=== PATIENT | female | born 1990 | race African-American/Black ===

== ENCOUNTER 2019-10-18 06:47 | Inpatient (IN) | payer OTHER ==
[2019-10-18] MEDS ORDERED: Ondansetron PF 4 MG/2 ML Vial IVP PRN ×2 (07:35→16:12)
[2019-10-18] MEDS ORDERED: hydrALAZINE 20 MG/ML VIAL SLOW IVP PRN (07:35)
[2019-10-18] MEDS ORDERED: Promethazine HCl 25 MG/ML VIAL IM PRN ×2 (07:35→16:12)
[2019-10-18 07:42] VITALS: BMI 34.2
[2019-10-18] MEDS ORDERED: Bicitra 30 ML UDCUP PO SCH (07:45)
[2019-10-18] MEDS ORDERED: Clindamycin/D5W 900 MG in Premix Bag 1 BAG IVPB SCH (07:45)
[2019-10-18] MEDS ORDERED: Zidovudine 200 MG/20 ML VIAL IVPB SCH (07:45)
[2019-10-18] MEDS: Lactated Ringer's 1,000 ML IV SCH ×4 (08:00→18:15)
[2019-10-18] MEDS ORDERED: SODIUM CHLORIDE 0.9% IVPB SCH (08:15)
[2019-10-18] MEDS ORDERED: ZIDOVUDINE IVPB SCH (08:15)
[2019-10-18 08:20] LABS: Hemoglobin 10.4 g/dL (12.0-16.0); Mean Corpuscular HGB CONC 32.2 g/dL (32.0-36.0); Mean Corpuscular Hemoglobin 28.1 pg (27.0-31.0); Mean Corpuscular Volume 87.5 fL (78.0-98.0); Mean Platelet Volume 8.2 fL (7.4-10.4); Platelet Count 331 thou/uL (130-400); RBC Distribution Width 13.6 % (11.5-14.5); Red Blood Cell (RBC) Count 3.71 mill/uL (4.20-5.40); White Blood Cell (WBC) Count 11.7 thou/uL (4.8-10.8)
[2019-10-18] MEDS ORDERED: Gentamicin Sulfate 380 MG in Sodium Chloride 0.9% 100 ML IVPB SCH (08:30)
--- NOTE | 2019-10-18 08:30 | PDOC.FPROB ---
FMR OB H&P: HPI - History of Present Illness Chief Complaint: medically indicated at 39 weeks History of Present Illness: 29 y/o , at 39.2 weeks, dated by 36.1 week sono, c/w unsure LMP. Here today for medically indicated from HIV + with viral copy 341, viral log 2.533, CD4 count 556, genotype unknown. Pt has not been on HAART therapy during this and was started In September By Dr. Powers. MFM recommended c -section due to late to HAART therapy and viral copy load. PT denies LOF, Vag bleeding, vag discharge, or feeling contractions. movements observed every 1-2 minutes. PT states she really wants to have a BTL, due to her HIV status and not wanting to have any more children. Primary Care Physician: ROBERTA Stearns FMR OB H&P: Current - Care : 6 Para: 4 Gestational age: 39.2 Due date: 10/23/19 Dating Criteria: 36.1 wk sono, c/w unsure LMP. Course/Complications: HIV, untreated through course until early September 2019. Late to care. - OB Labs Blood type: O RH: positive Antibody Screen: negative HIV: positive RPR: negative HepBsAg: negative Rubella: non-immune Quad screen: unknown Gonorrhea: positive (treated last week in [facility]) Chlamydia: negative Pap Smear: performed 10/17 1 hour gtt: late to care, not done. GBS: unknown H&H: 10.10/17.1 Additional labs: HIV viral copy 341 HIV viral log 2.533 CD4 % 27.5 CD4 count 556 HIV genotype unknown GC and Trich +, treated in [facility] last week. - Additional Ultrasound Additional: 36.1 week sono used for dating. c/w unsure LMP. Anatomy sonogram 10/03: anterior placenta, cephalic presentation, no anatomy abnormalities observed, though suboptimal sonogram. BPP 10/11: 8/8, NST reactive. NATACHA 8.6, FHT's 145. Anterior placenta. FMR OB H&P: History - Past Medical History PMH: HIV + since 2007 fractured L foot, needing repair after of this child - OB History OB History: , one previous elective . 's X4 - Surgical History Sx History: cholecystectomy R-femur sx ORIF after trauma - Social History Social History: Recently discharged from [facility]. Previous use of smoking meth. Quit smoking X1 month ago. Smoked 1/2-1 ppd since she was 15. Denies abuse at home. Feels safe at home. Lives with mother and children. States father of her first daughter cheated on her and that is how she contracted HIV in 2007. States none of other children HIV +. Father of current somewhat involved with pt. In/out of her life. Denies abuse in relationship. Previous CPS case from when she delivered in [facility] at [facility]. - Family History Family History: no known medical history per pt. FMR OB H&P: Medications - Current Home Medications: Medication Instructions Recorded Confirmed Type Elviteg/Cob/Emtri/Tenofo Disop 1 tab PO QAM-WM 05/14/16 10/18/19 History [Stribild] No.137/Iron/Folic Acd 1 tablet PO DAILY 05/14/16 10/18/19 History [ Vitamin Tablet] Emtricitabine/Tenofovir (Tdf) 1 tab PO BID 10/18/19 10/18/19 History [Truvada 200 mg-300 mg Tablet] Etravirine [Intelence] 200 mg PO BID-PC 10/18/19 10/18/19 History Famotidine [Pepcid] 1 tab PO 10/18/19 History Raltegravir Potassium [Isentress] 1 tab PO 10/18/19 History Allergies/Adverse Reactions: Allergies Allergy/AdvReac Type Severity Reaction Status Date / Time Penicillins Allergy Intermediate Hives Verified 10/18/19 11:13 FMR OB H&P: ROS - Review of Systems General: denies: fever/chills, weight/appetite/sleep changes Eyes: reports: scotomas (occassionally, but not present recently). denies: eye pain ENT: denies: nasal congestion, sinus pain/pressure Cardiovascular: reports: edema (LE X1 month ago, went away about 2 weeks ago). denies: chest pain, palpitation Respiratory: denies: cough, shortness of breath Gastrointestinal: denies: abdominal pain, nausea, vomiting, diarrhea, constipation Genitourinary (Female): denies: incontinence, dysuria, vaginal pain, vaginal bleeding, vaginal mass/sore, contractions, vaginal pressure Musculoskeletal: reports: swelling. denies: pain, tenderness Neurologic: denies: numbness, seizures Integumentary: denies: itching, rash Hematologic/Lymphatic: denies: prolonged or excessive bleeding, enlarged lymph nodes FMR OB H&P: Vital Signs - Maternal Vital signs: BP 123/77, O2 sat 100% on RA, 105 HR, 98.7 temp - Heart Tones Baseline: 150 Variability: moderate Acceleration: present Deceleration: absent Category: category 1 [place] contractions every: Q6-10 min FMR OB H&P: Physical Exam - Physical Exam General: NAD, awake, alert and oriented HEENT: normocephalic and atraumatic, PERRLA, EOMI, MMM, conjunctiva clear, no scleral icterus, grossly normal vision, grossly normal hearing, other (denture removalble implant on upper teeth.) Neck: supple, FROM, trachea midline, no LAD, no JVD Chest: non-tender to palpation, no lesions Breast: symmetric Heart: RRR, normal S1/S2, no murmurs/rubs/gallops, pulses present, no edema General: CTAB, no respiratory distress, good air movement, no rales/rhonchi, no wheezing, no retractions Abdomen: soft, gravid, non-tender, bowel sound present, no masses Musculoskeletal: normal gait and station, pulses present, FROM in all four extremities, no misalignment/asymmetry, no atrophy Neurological: cranial nerves II through XII intact, sensation to pain,touch and proprioception grossly normal, no clonus, no tremor, no focal deficit Skin: no rash, good tugor, capillary refill <2 seconds, no jaundice Lymphatic: no unusual bruising or bleeding, no purpura, no petechia, no LAD Psychiatric: intact recent and remote memory, good judgement and insight, normal mood and affect - Pelvic Exam Vulva: normal hair distribution, appropriate kalani stage SVE: 1/100/-3, posterior cervix. Blue score: Blue score 4 Membranes: intact Presentation: cephalic, confirmed by sonogram AM on 10/[address] Sebastian and Dr. Willson. FMR OB H&P: Results - Labs Lab results: Laboratory Results - last 24 hr 10/18/19 08:05 WBC 11.7 H RBC 3.71 L Hgb 10.4 L Hct 32.5 L MCV 87.5 MCH 28.1 MCHC 32.2 RDW 13.6 Plt Count 331 MPV 8.2 FMR OB H&P: A/P - Problem List (1) HIV disease affecting in third trimester Current Visit: No Status: Chronic Code(s): O98.713 - HUMAN IMMUNODEF VIRUS DISEASE COMP PREG, THIRD TRIMESTER Comment: Doing well, taking home stribild. Undetectable viral load. (2) delivery due to maternal disorder Current Visit: Yes Status: Acute Code(s): O99.89 - OTH DISEASES AND CONDITIONS COMPL PREG/CHLDBRTH Discussion: Date/Time: 10/18/19 0826 29 y/o @ 39.2 weeks here for medically indicated due to HIV without HAART therapy throughout pre- course and viral copy elevated. 1. IUP @ 39.2 weeks, dated by 36.1 week sono consistent with unsure LMP. - scheduled for noon on 10/18. - started AZT 1 mg/kg 3 hours pre-op. - HIV +, will bottle feed. 2. HIV + - Pt started HAART therapy in September, continue drug regimen as prescribed by Dr. Powers. - was incarcerated and late to [facility]. - Consulted [facility] for regimen for mother and baby during and after delivery. - given AZT 3 hours pre-op 3. Late to care - case management consulted This H&P was discussed with Dr. Stallworth and Dr. Roberts who agree with the above documentation and plan. Addendum - Attending - Attending Attestation Date/Time: 10/18/19 1119 I personally evaluated the patient and discussed the management with Dr. Sebastian. I agree with the History, Examination, Assessment and Plan documented above with any addition or exceptions noted below. Dr Horn discussed the care plan with MFChristina and Dr Powers yesterday and arranged scheduled . Our team discussed anti-retroviral therapy for the post delivery and will follow their recommendations in that respect. [facility]I ERD preclude tubal sterilization. We will work with patient to arrange a sterilization as desired following discharge from hospital.
[2019-10-18] MEDS: DEXTROSE 5% IVPB SCH ×2 (09:01→12:13)
[2019-10-18] MEDS: WATER IVPB SCH ×2 (09:01→12:13)
[2019-10-18] MEDS: ZIDOVUDINE IVPB SCH ×2 (09:01→12:13)
[2019-10-18 09:02] LABS: Syphilis Antibody Nonreactive (Nonreactive)
[2019-10-18 09:03] LABS: HBSAg Index 0.22 S/CO (0-0.99); Hep B Surf Ag Non-Reactive S/CO (NonReactive)
[2019-10-18] MEDS ORDERED: FLU VACC QS2019-20(6MOS UP)/PF 60 MCG/0.5 ML SYRINGE IM ONE (09:15)
[2019-10-18 09:17] LABS: Amphetamine Not Detected (NotDetected); Barbiturates Screen Not Detected (NotDetected); Benzodiazepine Screen Not Detected (NotDetected); Cocaine Metabolite Screen Not Detected (NotDetected); Medtox Control Line Valid? VALID (VALID); Medtox Reader # READER 4; Methadone Not Detected (NotDetected); Methamphetamine Not Detected (NotDetected); Opiate Screen Not Detected (NotDetected); Oxycodone Screen Not Detected (NotDetected); Phencyclidine (PCP) Not Detected (NotDetected); THC/Cannabinoid Screen Not Detected (NotDetected); Tricyclic Screen Not Detected (NotDetected)
[2019-10-18] MEDS ORDERED: Famotidine 20 MG TAB PO PRN (10:35)
[2019-10-18] MEDS ORDERED: PHENYLEPHRINE-NS 100 MCG/ML 10 ML SYRINGE ONE (13:24)
[2019-10-18] MEDS ORDERED: Metoclopramide HCl 10 MG/2 ML VIAL ONE (13:24)
[2019-10-18] MEDS ORDERED: Ondansetron PF 4 MG/2 ML Vial ONE (13:24)
[2019-10-18] MEDS ORDERED: Ketorolac Tromethamine 30 MG/ML VIAL ONE (13:24)
[2019-10-18] MEDS ORDERED: MORPHINE 5 MG/10 ML PF VIAL ONE (13:24)
[2019-10-18] MEDS ORDERED: ePHEDrine/0.9% NaCl/PF SYRINGE 50 mg/10 ml ONE (13:24)
[2019-10-18] MEDS ORDERED: Oxytocin 10 UNITS/ML VIAL ONE ×2 (13:24→14:08)
[2019-10-18] MEDS ORDERED: EPINEPHrine 1 MG/ML AMP ONE (13:52)
[2019-10-18] MEDS ORDERED: Midazolam HCl 2 mg/2 ml Vial ONE (14:23)
[2019-10-18] MEDS ORDERED: Fentanyl 100 MCG/2 ML VIAL ONE (14:26)
[2019-10-18] MEDS ORDERED: Methylergonovine 0.2 MG/ML VIAL ONE (14:28)
--- NOTE | 2019-10-18 14:57 | RAD ---
EXAM: XR Abdomen 1 View/KUB PROVIDED CLINICAL HISTORY: Possible foreign body after section COMPARISON: None FINDINGS: The upper and more lateral left aspect of the abdomen is excluded from view. Surgical clips overlie the right upper quadrant. No metallic foreign body is appreciated on provided images. Bowel gas pattern is nonspecific. IMPRESSION: No metallic foreign body is visualized.
[2019-10-18] MEDS ORDERED: Methylergonovine 0.2 MG/ML VIAL IM PRN (15:08)
[2019-10-18] MEDS ORDERED: Lanolin Ointment 7 GM TUBE TOP PRN (15:08)
[2019-10-18] MEDS ORDERED: Simethicone Chewable 80 MG TAB PO PRN (15:08)
[2019-10-18] MEDS ORDERED: HYDROcodone/Acetaminophen 5/325 mg Tablet PO PRN (15:08)
[2019-10-18] MEDS ORDERED: Methylergonovine 0.2 MG TAB PO PRN (15:08)
[2019-10-18] MEDS ORDERED: diphenhydrAMINE 25 MG CAP PO PRN (15:08)
[2019-10-18] MEDS ORDERED: Acetaminophen 325 MG TAB PO PRN (15:08)
[2019-10-18] MEDS ORDERED: Misoprostol 200 MCG TAB PR PRN (15:08)
[2019-10-18] MEDS ORDERED: diphenhydrAMINE 50 MG/ML VIAL IVP PRN (16:12)
[2019-10-18] MEDS ORDERED: HYDROmorphone 2 MG/ML VIAL SLOW IVP PRN (16:12)
[2019-10-18] MEDS ORDERED: Naloxone HCl 0.4 mg/ml Vial IV PRN (16:12)
[2019-10-18] MEDS ORDERED: Promethazine HCl 25 MG SUPP PR PRN (16:12)
[2019-10-18] MEDS ORDERED: L&D-Morphine 4 MG/ML VIAL SLOW IVP PRN (16:12)
[2019-10-18] MEDS ORDERED: Ondansetron HCl/PF 4 MG/2 ML Vial IVP PRN (16:12)
[2019-10-18] MEDS ORDERED: Naloxone HCl 0.4 mg/ml Vial IVP PRN ×2 (16:12)
[2019-10-18] MEDS ORDERED: Meperidine HCl/PF 25 MG/ML VIAL SLOW IVP PRN (16:12)
[2019-10-18] MEDS ORDERED: Communication Order-Pharmacy FS SCH (16:15)
[2019-10-18] MEDS: Ketorolac Tromethamine 30 MG/ML VIAL IVP PRN (20:01)
[2019-10-18] MEDS: Raltegravir Potassium 400 MG TAB PO SCH (21:07)
[2019-10-18] MEDS: Emtricitabine/Tenofovir 200-300 MG TAB PO SCH (21:08)
[2019-10-18] MEDS: Ibuprofen 800 MG TAB PO SCH (21:19)
[2019-10-19 06:07] LABS: Hemoglobin 8.2 g/dL (12.0-16.0); Mean Corpuscular HGB CONC 32.7 g/dL (32.0-36.0); Mean Corpuscular Hemoglobin 28.9 pg (27.0-31.0); Mean Corpuscular Volume 88.5 fL (78.0-98.0); Mean Platelet Volume 7.7 fL (7.4-10.4); Platelet Count 273 thou/uL (130-400); RBC Distribution Width 13.7 % (11.5-14.5); Red Blood Cell (RBC) Count 2.83 mill/uL (4.20-5.40); White Blood Cell (WBC) Count 11.5 thou/uL (4.8-10.8)
[2019-10-19] MEDS: Ketorolac Tromethamine 30 MG/ML VIAL IVP PRN (06:20)
[2019-10-19] MEDS: Ibuprofen 800 MG TAB PO SCH ×4 (06:20→21:38)
--- NOTE | 2019-10-19 07:20 | PDOC.PP ---
Post Progress Note Post Day #: 1 PO intake tolerated: yes Flatus: yes Ambulation: yes Vital Signs (12 hours) Temp Pulse Resp BP 10/19/19 00:05 98.7 F 93 18 100/52 L 10/18/19 19:37 104 H 18 113/64 Weight Weight 99.337 kg - Physical Examination General: NAD Cardiovascular: no m/r/g, RRR Respiratory: clear to auscultation bilaterally Abdominal: no distention Skin: CS incision dry & intact Neurological: no gross focal deficits Psychiatric: A&Ox3, normal affect Result Diagrams: 10/19/19 05:45 Additional Labs: Post Labs Blood Type O POSITIVE 10/18/19 08:05 Hep Bs Antigen Non-Reactive S/CO (NonReactive) 10/18/19 08:05 (1) History of group B Streptococcus (GBS) infection Code(s): Z86.19 - PERSONAL HISTORY OF OTHER INFECTIOUS AND PARASITIC DISEASES Status: Acute (2) delivery due to maternal disorder Code(s): O99.89 - OTH DISEASES AND CONDITIONS COMPL PREG/CHLDBRTH Status: Acute (3) Drug use affecting in third trimester Code(s): O99.323 - DRUG USE COMPLICATING , THIRD TRIMESTER Status: Acute Comment: UDS positive for meth/amphetamines, mom reports that this is likely related to taking adderall as prescribed during . D/W social work, doing well bonding with the baby, so will not need to wait until D:L isomer ratio comes back to send home. (4) HIV disease affecting in third trimester Code(s): O98.713 - HUMAN IMMUNODEF VIRUS DISEASE COMP PREG, THIRD TRIMESTER Status: Chronic Comment: Doing well, taking home stribild. Undetectable viral load. - Assessment/Plan 29 y/o @ 39.2 weeks here for medically indicated due to HIV without HAART therapy throughout pre-jacek course, elevated viral load, and resistant HIV stain. 1.sIUP@ 39.2 weeks, dated by 36.1 week sono consistent with unsure LMP, delivered - s/p pLTCS - Continue routine care - HIV +, will bottle feed. - restarted HAART therapy 2. HIV +, viral load 342 - Pt started HAART therapy in September, continue drug regimen as prescribed by Dr. Powers. - was incarcerated and late to [facility]. - Consulted [facility] for regimen for mother and baby during and after delivery. - given AZT 3 hours pre-op 3. Late to care - case management consulted 4. UDS positive -CM consult 5. GBS unknown -hx of +GBS Errol Roberts MD, PGY3
[2019-10-19] MEDS ORDERED: Non-Formulary Item 1 EACH (Elviteg/Cob/Emtri/Tenofo Disop [Stribild] 1 TAB) PO SCH (08:00)
[2019-10-19] MEDS: Prenatal Vitamin 1 TAB PO SCH (08:12)
[2019-10-19] MEDS: Raltegravir Potassium 400 MG TAB PO SCH ×2 (09:28→21:39)
[2019-10-19] MEDS: Ferrous Sulfate 325 MG TAB PO SCH ×2 (09:29→21:39)
[2019-10-19] MEDS: Emtricitabine/Tenofovir 200-300 MG TAB PO SCH ×2 (09:29→21:38)
[2019-10-19] MEDS ORDERED: Docusate Calcium (SURFAK) 240 MG CAP PO SCH (10:45)
[2019-10-19] MEDS: HYDROcodone/Acetaminophen 5/325 mg Tablet PO PRN ×3 (12:33→23:05)
[2019-10-19] MEDS ORDERED: Adacel (T-DAP) 0.5 ML SYRINGE IM ONE (15:08)
[2019-10-19] MEDS: Docusate Calcium (SURFAK) 240 MG CAP PO SCH (21:38)
[2019-10-20] MEDS: Ibuprofen 800 MG TAB PO SCH ×4 (05:54→21:14)
[2019-10-20] MEDS: Ferrous Sulfate 325 MG TAB PO SCH ×3 (08:18→21:15)
[2019-10-20] MEDS: Prenatal Vitamin 1 TAB PO SCH (08:18)
[2019-10-20] MEDS: HYDROcodone/Acetaminophen 5/325 mg Tablet PO PRN ×4 (08:18→22:15)
[2019-10-20] MEDS: Docusate Calcium (SURFAK) 240 MG CAP PO SCH ×3 (08:18→21:14)
[2019-10-20] MEDS: Emtricitabine/Tenofovir 200-300 MG TAB PO SCH ×2 (08:19→21:10)
[2019-10-20] MEDS: Raltegravir Potassium 400 MG TAB PO SCH ×2 (09:42→21:10)
--- NOTE | 2019-10-20 10:15 | PDOC.PP ---
Post Progress Note Post Day #: 2 Subjective: S/p pLTCS indicated for HIV+ in mom with high viral load. PT doing well this am. Denies complaints. PO intake tolerated: yes Flatus: yes Ambulation: yes Vital Signs (12 hours) Temp Pulse Resp BP Pulse Ox 10/20/19 08:15 98.1 F 94 18 123/70 99 10/20/19 05:50 98.6 F 92 16 131/79 10/19/19 23:05 98.8 F 100 18 119/63 Weight Weight 99.337 kg - Physical Examination General: NAD Cardiovascular: no m/r/g, RRR Respiratory: clear to auscultation bilaterally, non-labored breathing Abdominal: + bowel sounds, no distention, appropriately TTP Skin: CS incision dry & intact Neurological: no gross focal deficits Result Diagrams: 10/19/19 05:45 Additional Labs: Post Labs Blood Type O POSITIVE 10/18/19 08:05 Hep Bs Antigen Non-Reactive S/CO (NonReactive) 10/18/19 08:05 (1) History of group B Streptococcus (GBS) infection Code(s): Z86.19 - PERSONAL HISTORY OF OTHER INFECTIOUS AND PARASITIC DISEASES Status: Acute (2) delivery due to maternal disorder Code(s): O99.89 - OTH DISEASES AND CONDITIONS COMPL PREG/CHLDBRTH Status: Acute (3) Drug use affecting in third trimester Code(s): O99.323 - DRUG USE COMPLICATING , THIRD TRIMESTER Status: Acute (4) HIV disease affecting in third trimester Code(s): O98.713 - HUMAN IMMUNODEF VIRUS DISEASE COMP PREG, THIRD TRIMESTER Status: Chronic - Assessment/Plan 29 y/o @ 39.2 weeks here for medically indicated due to HIV without HAART therapy throughout pre-jacek course, elevated viral load, and resistant HIV stain. POD#2 1.sIUP@ 39.2 weeks, dated by 36.1 week sono consistent with unsure LMP, delivered - s/p pLTCS - Continue routine care - HIV +, will bottle feed. - restarted HAART therapy 2. HIV +, viral load 342 - Pt started HAART therapy in September, continue drug regimen as prescribed by Dr. Powers. - was incarcerated and late to [facility]. - Consulted [facility] for regimen for mother and baby during and after delivery. - given AZT 3 hours pre-op 3. Late to care - case management consulted 4. UDS positive in infant- -CM consult 5. GBS unknown -hx of +GBS -obs 48 hours H. MD Armando, PGY3
[2019-10-21] MEDS: HYDROcodone/Acetaminophen 5/325 mg Tablet PO PRN ×4 (05:11→18:30)
[2019-10-21] MEDS: Ibuprofen 800 MG TAB PO SCH ×2 (05:11→13:59)
[2019-10-21 08:09] VITALS: BP 121/78; TEMP 98.6
--- NOTE | 2019-10-21 08:47 | PDOC.PP ---
Post Progress Note Post Day #: 3 Subjective: Pt doingn well, up waling around, had BM. States pain 4/10 when moving in incision line. Denies calf pain, CP, SOB. No trouble urinating. PO intake tolerated: yes Flatus: yes Ambulation: yes Vital Signs (12 hours) Temp Pulse Resp BP Pulse Ox 10/21/19 08:08 98.6 F 78 20 121/78 100 10/21/19 05:10 97.9 F 84 20 127/80 99 10/20/19 23:30 98.6 F 88 16 123/86 98 Weight Weight 99.337 kg - Physical Examination General: NAD Cardiovascular: no m/r/g, RRR Respiratory: clear to auscultation bilaterally, non-labored breathing Abdominal: + bowel sounds, lochia, no distention, appropriately TTP Extremities: negative homans (B) Skin: CS incision dry & intact (jeanette intact.), no rash Neurological: no gross focal deficits Psychiatric: A&Ox3, normal affect Result Diagrams: 10/19/19 05:45 Additional Labs: Post Labs Blood Type O POSITIVE 10/18/19 08:05 Hep Bs Antigen Non-Reactive S/CO (NonReactive) 10/18/19 08:05 (1) HIV disease affecting in third trimester Code(s): O98.713 - HUMAN IMMUNODEF VIRUS DISEASE COMP PREG, THIRD TRIMESTER Status: Chronic (2) delivery due to maternal disorder Code(s): O99.89 - OTH DISEASES AND CONDITIONS COMPL PREG/CHLDBRTH Status: Acute - Assessment/Plan 29 y/o @ 39.2 weeks here for medically indicated due to HIV without HAART therapy throughout pre- course, elevated viral load, and resistant HIV stain. POD#2 1.sIUP@ 39.2 weeks, dated by 36.1 week sono consistent with unsure LMP, delivered - s/p pLTCS - Continue routine care - HIV +, will bottle feed. - restarted HAART therapy 2. HIV +, viral load 342 - Pt started HAART therapy in September, continue drug regimen as prescribed by Dr. Powers. - was incarcerated and late to [facility]. - Consulted [facility] for regimen for mother and baby during and after delivery. - given AZT 3 hours pre-op 3. Late to care - case management consulted 4. UDS positive in - -CM consult 5. GBS negative -hx of +GBS -obs 48 hours Dispo: stable, possible d/c home today
[2019-10-21] MEDS: Prenatal Vitamin 1 TAB PO SCH (09:12)
[2019-10-21] MEDS: Docusate Calcium (SURFAK) 240 MG CAP PO SCH (09:12)
[2019-10-21] MEDS: Ferrous Sulfate 325 MG TAB PO SCH (09:12)
[2019-10-21] MEDS: Emtricitabine/Tenofovir 200-300 MG TAB PO SCH (09:14)
[2019-10-21] MEDS: Raltegravir Potassium 400 MG TAB PO SCH (09:15)
--- NOTE | 2019-10-24 06:42 | DN ---
DATE OF PROCEDURE: 10/18/2019 RESIDENT: oHrace Stearns, PGY-3 PROCEDURE PERFORMED: Primary low-transverse section. PREOPERATIVE DIAGNOSES: 1. Term intrauterine . 2. Late to care. 3. Human immunodeficiency virus positive with unknown possible resistant genotype and recently treated a week ago for vaginitis infection. 4. The patient recently incarcerated. 5. History of drug abuse. POSTOPERATIVE DIAGNOSES: 1. Term intrauterine . 2. Late to care. 3. Human immunodeficiency virus positive with unknown possible resistant genotype and recently treated a week ago for vaginitis infection. 4. The patient recently incarcerated. 5. History of drug abuse. 6. Intraoperative hemorrhage. 7. Uterine atony. ANESTHESIA: Spinal. INDICATIONS: The patient is a 29-year-old, G6, P4-0-1-4 at 39 and 2 weeks' gestation who presents for primary scheduled due to never being put on any antiretroviral therapy prior to procedure. The patient's viral load was 341. HIV viral load 2.53, CD4 percentage 27.5, CD4 count 556, though the HIV genotype is unknown, but per Dr. Powers believes that she has some possible resistant strain of HIV. She did deliver all her prior babies vaginally, but she had been on the proper course of antiretroviral prophylaxis during the . When she saw [facility], they recommended that she deliver via primary as she did not have adequate time to take antiretroviral therapy as she presented for OB care just last week at 38 weeks. She did come in 4 hours prior to the section and was given a loading dose of zidovudine (AZT) therapy prior to the procedure. DESCRIPTION OF PROCEDURE: After risks, benefits, and alternatives were explained to the patient, she gave informed consent. Preoperative antibiotics included cefazolin 2 g IV and she also got the antiretroviral AZT with a continuous infusion 4 hours prior to the procedure. The patient was taken to the operating room and spinal anesthesia was initiated. She was placed in the supine position with a left tilt and prepped and draped in the usual sterile fashion. A Pfannenstiel incision was made with the scalpel and carried down to the level of the fascia, which was sharply nicked. The fascial cut was extended bilaterally with Hernandez scissors. The inferior and superior edges of the cut fascial edges were elevated with Gloria clamps and the underlying rectus muscles were sharply and bluntly dissected three. The recti were divided digitally and retracted manually. Peritoneum was entered bluntly and retracted manually. Blayne O ring retractor was placed, with care that no abdominal contents were compressed. A low-transverse score was made with the scalpel and the uterus was entered in the midline with the scalpel. There was some moderate bleeding noted during the incision as the placenta was noted to be anterior. The uterus was entered in the midline with scalpel. Clear fluid was seen. Hysterotomy extended manually and the was noted to be vertex and easily delivered by fundal pressure. Mouth and nares were bulb suctioned. Cord clamped and cut and grossly normal female. The infant was handed to the awaiting nurse. Cord blood was obtained. Placenta was manually extracted and found to be intact with 3-vessel cord and discarded. Significant bleeding from hysterotomy site then was noted and the endometrium was curetted with a dry lap. The Blayne O retractor was still in place and the uterus was closed with a running locking 0 Vicryl suture followed by a running nonlocking #1 chromic imbricating suture. We then used a 3-O chromic as there was still some noted oozing to do a [id number] stitch. Following this, hemostasis was noted and it should also be noted that during this time that the uterus would kind of clamp up and then become boggy again. At this time, we gave her a dose of Methergine as we believed this to lead to some of her increased bleeding. At this time, we were unable to visualize all of the uterine gutters, so we removed the Blayne O retractor, and the uterus was externalized. Following this, we were able to visualize and noted hemostasis. The abdomen was irrigated with saline and suctioned free of clots. At this time, the uterus was internalized and the hysterotomy was again noted to be hemostatic. Before we continued with closure, the nurse and wind turbine technician noted a needle count discrepancy. Therefore we followed appropriate protocol. We had x-ray come in to make sure that there was not a foreign body left in the patient. Abdominal X-ray was taken, reviewed by Radiology, and called back up to us and was reported as negative. Ultimately it was determined the initial count was off and that all needles were accounted for. Care was taken to ensure hemostasis are the hysterotomy site, retus muscles and subcutaneous space. Then we proceeded with closure. The fascia was closed with a running nonlocking 0 Vicryl suture. The subcutaneous tissue was irrigated and there were no bleeders. The subcutaneous layer was approximated with three interrupted 3-0 chromic sutures and the skin was approximated with jeanette and a pressure dressing was placed. Skin was approximated with jeanette. Final count was correct. The patient tolerated the procedure well and was taken to the recovery room in stable condition. Quantitative blood loss was 1692. COMPLICATIONS: Intraoperative hemorrhage with uterine atony resolved with hysterotomy closure and methergine. Needle count discrepancy which was resolved through following protocol. SPECIMENS: Cord blood sent to lab for blood type. FINDINGS: Grossly normal female infant with Apgars of 9 and 9. Grossly normal placenta with 3-vessel cord was discarded. DRAINS: Mi to gravity, draining clear urine. Job ID: [id number] MTDD
== END 2019-10-21 19:10 | disposition home or self-care (01) | DRG 787 ==
LOC: L&D-LIB 06:47 → 3SE 18:29
PROVIDERS: ADMIT Family Medicine; ATTEND Family Medicine
PROC: 10D00Z1 Extraction of Products of Conception, Low, Open Approach (ICD-10-PCS; principal; 2019-10-18)
DX: O98.72 Human immunodeficiency virus [HIV] disease complicating childbirth (principal); O99.324 Drug use complicating childbirth; O72.1 Other immediate postpartum hemorrhage; F15.90 Other stimulant use, unspecified, uncomplicated; Z3A.39 39 weeks gestation of pregnancy; Z37.0 Single live birth
CPT/HCPCS: 36415; 51702; 74018; 80306; 85027; 86780; 86850; 86900; 86901; 87340; 88307; J0171; J1885; J2210; J2250; J2274; J2405; J2590; J2765; J3010; J3485; J3490; J7070

== ENCOUNTER 2020-05-26 21:20 | Emergency (ER) | payer OTHER ==
[2020-05-26 21:54] LABS: #Eosinphils 0.1 thou/uL (0.0-0.7); #Lymphocytes 1.4 thou/uL (1.20-3.40); #Monocytes 0.5 thou/uL (0.11-0.59); #Neutrophils 6.3 thou/uL (1.40-6.50); %Basophils 0.5 % (0.0-1.0); %Eosinophils 0.6 % (0.0-10.0); %Lymphocytes 16.4 % (21.0-51.0); %Monocytes 5.8 % (0.0-10.0); %Neutrophils 76.6 % (42.0-75.0); Hemoglobin 11.2 g/dL (12.0-16.0); Mean Corpuscular HGB CONC 33.4 g/dL (32.0-36.0); Mean Corpuscular Hemoglobin 29.6 pg (27.0-31.0); Mean Corpuscular Volume 88.8 fL (78.0-98.0); Mean Platelet Volume 7.8 fL (7.4-10.4); Platelet Count 232 thou/uL (130-400); RBC Distribution Width 13.1 % (11.5-14.5); Red Blood Cell (RBC) Count 3.77 mill/uL (4.20-5.40); White Blood Cell (WBC) Count 8.2 thou/uL (4.8-10.8)
--- NOTE | 2020-05-26 22:37 | ULT ---
ULTRASOUND PELVIC ULTRASOUND TRANSVAGINAL DOPPLER DUPLEX: DATE: 05/26/2020 HISTORY: 30-year-old female with pelvic pain and heavy vaginal bleeding. TECHNIQUE: Transabdominal transducer and endovaginal transducer used to visualize intrapelvic contents with hannah scale, color-flow, and spectral analysis. FINDINGS: Uterus:14.5 x 7.5 x 8.5 cm.. Endometrial stripe:2.3 cm (23 mm) with heterogeneous echogenicity. Right ovary:2.8 x 3.1 x 2.9 cm. Left ovary:4.1 x 2.4 x 2.7 cm. Blood flow in ovaries:Bilaterally demonstrated Ovarian cyst:None Free fluid in the cul-de-sac:None IMPRESSION: Abnormally thickened, 23 mm endometrial stripe with heterogeneous echogenicity. This may represent bl ood clots filling the endometrial cavity. Recommend follow-up.
[2020-05-26] MEDS ORDERED: Ketorolac Tromethamine 30 MG/ML VIAL ONE (22:51)
[2020-05-28 22:25] LABS: Chlamydia by PCR Not Detected (NotDetected); GC by PCR Not Detected (NotDetected)
== END 2020-05-26 23:30 | disposition home or self-care (01) ==
LOC: ERS 21:20
DX: O03.9 Complete or unspecified spontaneous abortion without complication (principal)
CPT/HCPCS: 36415; 76856; 84702; 85025; 86900; 86901; 87480; 87491; 87510; 87591; 87660; 96372; J1885

== ENCOUNTER 2020-07-31 17:29 | Emergency (ER) | payer OTHER ==
[~2020-07-31 17:29] MED LIST: Iopamidol-370 76% 500 ML 1 ML ONE
[2020-07-31 18:23] LABS: Bacteria/HPF None Seen HPF (None Seen); Bilirubin Negative (Negative); Blood, Urine 1+ (Negative); Clarity Clear (Clear); Glucose, Urine (Dipstick) Normal (Negative); Ketone, Urine Negative (Negative); Leukocyte 75 Leu/uL (Negative); Mucous/LPF Rare LPF (<2+); Nitrite Negative (Negative); Protein, Urine (Dipstick) 30 mg/dL (Neg-Trace); Specific Gravity, Urine 1.032 (1.002-1.036); Squamous Epithelial 0-3 HPF (0-3); Urobilinogen Normal mg/dL (Less than 2); WBC/HPF 21-50 HPF (0-3)
[2020-07-31] MEDS ORDERED: Morphine 4 MG/ML VIAL ONE (18:23)
[2020-07-31] MEDS ORDERED: Ondansetron PF 4 MG/2 ML Vial ONE (18:23)
[2020-07-31 18:30] LABS: Hemoglobin 9.6 g/dL (12.0-16.0); Mean Corpuscular HGB CONC 30.6 g/dL (32.0-36.0); Mean Corpuscular Hemoglobin 25.3 pg (27.0-31.0); Mean Corpuscular Volume 82.8 fL (78.0-98.0); Mean Platelet Volume 7.7 fL (7.4-10.4); Platelet Count 324 thou/uL (130-400); RBC Distribution Width 15.1 % (11.5-14.5); Red Blood Cell (RBC) Count 3.79 mill/uL (4.20-5.40); White Blood Cell (WBC) Count 18.5 thou/uL (4.8-10.8)
[2020-07-31 18:37] LABS: BHCG - Serum Negative (NEGATIVE); Pregs Control Background? CLEAR/WHITE (CLR/WHITE); Pregs Control Bar Appear? YES (CONTROL BAR)
[2020-07-31 18:48] LABS: ALT (SGPT) 67 U/L (8-55); AST (SGOT) 103 U/L (5-34); Albumin 3.7 g/dL (3.5-5.0); Alkaline Phosphatase 141 U/L (40-110); Anion Gap 12 mmol/L (10-20); BUN (Urea Nitrogen) 18 mg/dL (7.0-18.7); Bilirubin, Total 0.6 mg/dL (0.2-1.2); Calc. Creatinine Clearance 0 mL/min (70-130); Calcium 8.3 mg/dL (7.8-10.44); Carbon Dioxide 26 mmol/L (22-29); Chloride 101 mmol/L (98-107); Estimated GFR-MDRD Greater than 90; Glucose 73 mg/dL (70-105); Lipase 8 U/L (8-78); Protein, Total 7.7 g/dL (6.0-8.3); Sodium 135 mmol/L (136-145)
[2020-07-31 18:49] LABS: Anisocytosis SLIGHT = 6-15 cells (100X) (0-5/hpf); Band 37 % (5-11); Hypochromia SLIGHT = 6-15 cells (100X) (0-5/hpf); Lymphocytes 3 % (21-51); MDiff Complete? YES; Metamyelocyte 5 % (0-0); Monocytes 3 % (0-10); Neutrophil 52 % (42-75); Platelet Morphology Comment Appears Adequate; Polychromasia SLIGHT = 2-3 cells (100X) (0-2/hpf)
--- NOTE | 2020-07-31 19:09 | CT ---
CT Abdomen Pelvis W Con: 07/31/2020 6:46 PM CLINICAL INFORMATION: Upper abdominal pain that began in 1:00 AM COMPARISON: KUB 10/18/2019 TECHNIQUE: Multiple contiguous axial images were obtained and a CT of the abdomen and pelvis with IV contrast. C oronal and sagittal reformats were performed. FINDINGS: Lower Chest: within normal limits. Abdomen: Liver: within normal limits. Bile Ducts: Normal caliber. Gallbladder: Removed Pancreas: within normal limits. Spleen: within normal limits. Adrenals: within normal limits. Kidneys: within normal limits. Pelvis: Reproductive Organs: No pelvic masses. Ureters: within normal limits. There is a 2 mm calcification in the pelvis which is likely medial to the right ureter but the ureters cannot be completely followed to their insertion in the urinary bladder. This most likely represents a phlebolith. This may have been present on the prior KUB. Bladder: within normal limits. Peritoneum: No ascites or free air, no fluid collection. Bowel: Normal caliber. Normal appendix. Mesentery and Retroperitoneum: No enlarged mesenteric or retroperitoneal lymph nodes. Vessels: Normal. Abdominal Wall: Patient has a genital piercing. Bones: A tract is seen in the right femur from prior hardware. IMPRESSION: No evidence of acute intraabdominal or pelvic abnormality.
[2020-07-31] MEDS ORDERED: Ketorolac Tromethamine 30 MG/ML VIAL ONE (19:20)
== END 2020-07-31 21:31 | disposition home or self-care (01) ==
LOC: ERS 17:29
DX: N39.0 Urinary tract infection, site not specified (principal); N20.1 Calculus of ureter; F41.9 Anxiety disorder, unspecified; F17.210 Nicotine dependence, cigarettes, uncomplicated
CPT/HCPCS: 36415; 74177; 80053; 81003; 81015; 83690; 84703; 85025; 87086; 96374; 96375; J1885; J2270; J2405; Q9967

== ENCOUNTER 2020-09-06 19:25 | Emergency (ER) | payer OTHER | END 2020-09-06 20:13 | LOC: ERS 19:25 | DX: F19.129 Other psychoactive substance abuse with intoxication, unspecified (principal); F17.210 Nicotine dependence, cigarettes, uncomplicated | CPT/HCPCS: 99284 ==

== ENCOUNTER 2021-11-15 13:08 | Emergency (ER) | payer OTHER | END 2021-11-15 13:25 | LOC: ERS 13:08 | DX: Z71.1 Person with feared health complaint in whom no diagnosis is made (principal); F17.210 Nicotine dependence, cigarettes, uncomplicated | CPT/HCPCS: 99282 ==